=== PATIENT | male | born 1990 | race Caucasian/White ===

== ENCOUNTER 2017-06-29 16:30 | Emergency (ER) | payer OTHER ==
[~2017-06-29] VITALS: Wt 86.2 kg
[~2017-06-29 16:30] MED LIST: AMOXICILLIN500 MG PO; BACTRIM DS 8001 TA1 PO; CEPHALEXIN500 M1 PO; CIPRO500 MG PO; FLEXERIL10 MG PO; HYDROCODONE BIT1 T11 PO; MEDROL DOSEPAK4 MG PO; MOTRIN800 MG PO; NAPROSYN500 MG PO; NO DAILY MEDS; ULTRAM50 MG PO; ZOFRAN4 MG PO
[2017-06-29 16:58] LABS: BASO # 0.1 10*3/uL (0.0-0.1); BASO % 0.8 % (0.0-1.0); EOS # 0.2 10*3/uL (0.0-0.4); EOS % 2.8 % (1.0-4.0); HEMATOCRIT 45.9 % (42.0-52.0); HEMOGLOBIN 15.7 g/dl (14.0-18.0); LYMPH # 2.3 10*3/uL (1.3-4.4); MEAN CELL VOLUME 86.9 fl (80.0-94.0); MEAN CORPUSCULAR HGB 29.7 pg (27.0-31.0); MEAN CORPUSCULAR HGB CONC 34.2 g/dl (33.0-37.0); MEAN PLATELET VOLUME 8.8 fl (9.6-12.3); MONO # 0.7 10*3/uL (0.1-1.0); PLATELET COUNT AUTOMATED 288 10*3/uL (130-400); RED BLOOD COUNT 5.28 10*6/uL (4.50-5.90); WHITE BLOOD COUNT 7.2 10*3/uL (4.8-10.8)
[2017-06-29 17:12] LABS: ACT PARTIAL THROMBO TIME 23.8 SECONDS (20.8-31.5)
[2017-06-29 17:14] LABS: ALBUMIN 3.8 gm/dl (3.1-4.5); ALKALINE PHOSPHATASE 92 U/L (45-117); BUN 8 mg/dl (7-24); CHLORIDE 102 mmol/L (98-107); CREATININE 1.13 mg/dL (0.70-1.30); MAGNESIUM 2.1 mg/dL (1.5-2.1); POTASSIUM 4.1 mmol/L (3.5-5.1); SGOT/AST 32 IU/L (3-35); SGPT/ALT 72 U/L (12-78); SODIUM 137 mmol/L (136-145); TOTAL PROTEIN 8.1 gm/dL (6.4-8.2); TROPONIN I < 0.015 ng/ml (<0.045)
[2017-06-29 18:43] VITALS: BP 136/85
== END 2017-06-29 18:44 | disposition home or self-care (01) ==
LOC: ED 16:30
PROVIDERS: Student in an Organized Health Care Education/Training Program
DX: R07.89 Other chest pain (principal)

== ENCOUNTER 2017-08-07 17:57 | Emergency (ER) | payer OTHER ==
[~2017-08-07] VITALS: Wt 86.2 kg
[2017-08-07 18:07] VITALS: BP 158/89
[2017-08-07] MEDS ORDERED: CIPRO500 MG PO (18:14)
[2017-08-07] MEDS ORDERED: NAPROSYN500 MG PO (18:14)
== END 2017-08-07 18:28 | disposition home or self-care (01) ==
LOC: ED 17:57
DX: S91.332A Puncture wound without foreign body, left foot, initial encounter (principal); R03.0 Elevated blood-pressure reading, without diagnosis of hypertension; F17.200 Nicotine dependence, unspecified, uncomplicated; W22.8XXA Striking against or struck by other objects, initial encounter; Y93.89 Activity, other specified; Y92.89 Other specified places as the place of occurrence of the external cause; Y99.9 Unspecified external cause status

== ENCOUNTER 2018-07-02 13:02 | Emergency (ER) | payer BC ==
[~2018-07-02] VITALS: Ht 175.2 cm; Wt 88.5 kg
--- NOTE | ~2018-07-02 | EKG ---
[place], [place] ELECTROCARDIOGRAM REPORT NAME: FRANDY GARCIA JR UNIT #: [id number] ROOM: DOCTOR: EPIPHANY DRAFT REPORT BIRTHDATE: [birth year] [facility] Test Date: 2018-07-02 Test Time: 13:10:12 Pat Name: FRANDY GARCIA Department: ER Room: 2 Gender: M [employer]: ARCENIO : 1990 Requested By: GUILLERMINA MARIE Order Number: [id number] Reading MD: Taurus Antony MD Measurements Intervals [place] Rate: 94 P: 54 DC: 155 QRS: 57 QRSD: 100 T: 50 QT: 348 QTc: 436 Interpretive Statements Sinus rhythm Probable left atrial enlargement Electronically Signed On 07-03-2018 5:34:47 PDT by Taurus Antony MD CM:EKGRPT:ELECTROCARDIOGRAM REPORT [id number] GUILLERMINA SHEA DRAFT REPORT GUILLERMINA MARIE DO
[2018-07-02 13:37] LABS: BASO # 0.1 10*3/uL (0.0-0.1); BASO % 0.8 % (0.0-1.0); EOS # 0.2 10*3/uL (0.0-0.4); HEMATOCRIT 43.9 % (42.0-52.0); HEMOGLOBIN 15.2 g/dl (14.0-18.0); LYMPH # 2.6 10*3/uL (1.3-4.4); MEAN CELL VOLUME 87.5 fl (80.0-94.0); MEAN CORPUSCULAR HGB 30.3 pg (27.0-31.0); MEAN CORPUSCULAR HGB CONC 34.6 g/dl (33.0-37.0); MEAN PLATELET VOLUME 8.6 fl (9.6-12.3); MONO # 0.8 10*3/uL (0.1-1.0); MONO % 10.9 % (3.0-9.0); NEUT # 3.5 10*3/uL (2.3-7.9); NEUT % 48.5 % (47.0-73.0); PLATELET COUNT AUTOMATED 305 10*3/uL (130-400); RED BLOOD COUNT 5.02 10*6/uL (4.50-5.90); RED CELL DISTRI WIDTH 12.3 % (0-14.5); WHITE BLOOD COUNT 7.2 10*3/uL (4.8-10.8)
[2018-07-02 13:48] LABS: ACT PARTIAL THROMBO TIME 23.6 SECONDS (20.8-31.5)
[2018-07-02 14:00] LABS: ALBUMIN 3.9 gm/dl (3.1-4.5); ALKALINE PHOSPHATASE 76 U/L (45-117); BUN 10 mg/dl (7-24); CHLORIDE 104 mmol/L (98-107); CREATININE 0.91 mg/dL (0.70-1.30); SGOT/AST 52 IU/L (3-35); SGPT/ALT 99 U/L (12-78); SODIUM 139 mmol/L (136-145); TOTAL PROTEIN 7.7 gm/dL (6.4-8.2)
[2018-07-02 14:01] LABS: TROPONIN I < 0.015 ng/ml (<0.045)
[2018-07-02 16:18] VITALS: BP 150/87
[2018-07-02] MEDS ORDERED: Motrin,Rufen800 MG PO (16:57)
== END 2018-07-02 17:12 | disposition home or self-care (01) ==
LOC: ED 13:02
PROVIDERS: Emergency Medicine
DX: M94.0 Chondrocostal junction syndrome [Tietze] (principal); K21.9 Gastro-esophageal reflux disease without esophagitis; Z87.891 Personal history of nicotine dependence

== ENCOUNTER 2019-08-22 16:58 | Emergency (ER) | payer SELFPAY ==
[~2019-08-22] VITALS: Ht 175.2 cm; Wt 104.3 kg
[~2019-08-22 16:58] MED LIST changes: +Motrin,Rufen800 MG PO; +ROBAXIN500 M1 PO
[2019-08-22 17:02] VITALS: BP 163/84
[2019-08-22 17:38] LABS: BASO # 0.1 10*3/uL (0.0-0.1); BASO % 0.8 % (0.0-1.0); EOS # 0.4 10*3/uL (0.0-0.4); EOS % 5.4 % (1.0-4.0); HEMOGLOBIN 15.3 g/dl (14.0-18.0); LYMPH # 2.2 10*3/uL (1.3-4.4); LYMPH % 29.3 % (27.0-41.0); MEAN CELL VOLUME 89.1 fl (80.0-94.0); MEAN CORPUSCULAR HGB 30.3 pg (27.0-31.0); MEAN PLATELET VOLUME 8.5 fl (9.6-12.3); MONO # 0.6 10*3/uL (0.1-1.0); MONO % 7.8 % (3.0-9.0); NEUT # 4.2 10*3/uL (2.3-7.9); NEUT % 56.2 % (47.0-73.0); PLATELET COUNT AUTOMATED 259 10*3/uL (130-400); RED BLOOD COUNT 5.05 10*6/uL (4.50-5.90); WHITE BLOOD COUNT 7.5 10*3/uL (4.8-10.8)
[2019-08-22 17:49] LABS: ACT PARTIAL THROMBO TIME 25.4 SECONDS (20.0-32.1)
[2019-08-22 19:10] LABS: ALBUMIN 3.8 gm/dl (3.1-4.5); ALKALINE PHOSPHATASE 76 U/L (45-117); BUN 10 mg/dl (7-24); CHLORIDE 106 mmol/L (98-107); CREATININE 1.11 mg/dL (0.70-1.30); LIPASE 99 U/L (73-393); POTASSIUM 3.9 mmol/L (3.5-5.1); SGOT/AST 64 IU/L (3-35); SGPT/ALT 131 U/L (12-78); SODIUM 138 mmol/L (136-145); TOTAL PROTEIN 7.8 gm/dL (6.4-8.2)
[2019-08-22 19:11] LABS: TROPONIN I < 0.015 ng/ml (<0.045)
[2019-08-22 19:43] LABS: BILIRUBIN NEGATIVE (NEGATIVE); BLOOD NEGATIVE (NEGATIVE); CLARITY SL CLOUDY (CLEAR); COLOR YELLOW (YELLOW); GLUCOSE NEGATIVE (NEGATIVE); KETONE NEGATIVE (NEGATIVE); LEUKO ESTERASE NEGATIVE (NEGATIVE); NITRITE NEGATIVE (NEGATIVE); SPECIFIC GRAVITY 1.015 (1.005-1.030); UROBILINOGEN 0.2 E.U./dl (0.2-1.0)
[2019-08-22] MEDS ORDERED: AMOXICILLIN500 M2 PO (19:47)
[2019-08-22 20:04] LABS: EPITHELIAL CELLS 0-2
== END 2019-08-22 20:00 | disposition home or self-care (01) ==
LOC: ED 16:58
PROVIDERS: Nurse Practitioner Family
DX: J32.9 Chronic sinusitis, unspecified (principal); I10 Essential (primary) hypertension; Z79.899 Other long term (current) drug therapy

== ENCOUNTER 2020-02-15 15:14 | Emergency (ER) | payer OTHER ==
[~2020-02-15] VITALS: Ht 182.8 cm; Wt 108.9 kg
[~2020-02-15 15:14] MED LIST changes: +AMOXICILLIN500 M2 PO
[2020-02-15 15:20] VITALS: BP 166/89
[2020-02-15] MEDS ORDERED: PREDNISONE20 M1 PO (15:37)
[2020-02-15] MEDS ORDERED: IBU800 MG PO (15:37)
== END 2020-02-15 16:56 | disposition home or self-care (01) ==
LOC: ED 15:14
DX: L55.1 Sunburn of second degree (principal); L55.0 Sunburn of first degree; R19.7 Diarrhea, unspecified; I10 Essential (primary) hypertension

== ENCOUNTER 2020-04-03 09:57 | Emergency (ER) | payer OTHER ==
[~2020-04-03] VITALS: Ht 175.2 cm; Wt 101.6 kg
[~2020-04-03 09:57] MED LIST changes: +IBU800 MG PO; +PREDNISONE20 M1 PO
[2020-04-03 10:47] LABS: BASO # 0.1 10*3/uL (0.0-0.1); BASO % 0.4 % (0.0-1.0); EOS # 0.2 10*3/uL (0.0-0.4); EOS % 0.9 % (1.0-4.0); HEMATOCRIT 42.4 % (42.0-52.0); LYMPH # 1.7 10*3/uL (1.3-4.4); LYMPH % 10.9 % (27.0-41.0); MEAN CELL VOLUME 90.2 fl (80.0-94.0); MEAN CORPUSCULAR HGB 29.8 pg (27.0-31.0); MEAN PLATELET VOLUME 8.6 fl (9.6-12.3); MONO # 1.5 10*3/uL (0.1-1.0); MONO % 9.5 % (3.0-9.0); NEUT # 12.3 10*3/uL (2.3-7.9); NEUT % 77.6 % (47.0-73.0); PLATELET COUNT AUTOMATED 285 10*3/uL (130-400); WHITE BLOOD COUNT 15.9 10*3/uL (4.8-10.8)
[2020-04-03 10:59] VITALS: BP 140/90
[2020-04-03 11:04] LABS: ALBUMIN 3.6 gm/dl (3.1-4.5); ALKALINE PHOSPHATASE 77 U/L (45-117); BUN 7 mg/dl (7-24); CHLORIDE 108 mmol/L (98-107); CREATININE 0.94 mg/dL (0.70-1.30); POTASSIUM 4.2 mmol/L (3.5-5.1); SGOT/AST 36 IU/L (3-35); SGPT/ALT 69 U/L (12-78); SODIUM 139 mmol/L (136-145); TOTAL PROTEIN 8.3 gm/dL (6.4-8.2)
[2020-04-03 11:05] LABS: TROPONIN I < 0.015 ng/ml (<0.045)
[2020-04-03] MEDS ORDERED: AMOXICILLIN,AM250 MG PO (13:18)
[2020-04-03] MEDS ORDERED: MEDROL DOSEPAK4 MG PO (13:18)
== END 2020-04-03 13:36 | disposition home or self-care (01) ==
LOC: ED 09:57
PROVIDERS: Nurse Practitioner Family
DX: J02.0 Streptococcal pharyngitis (principal); Z79.899 Other long term (current) drug therapy

== ENCOUNTER 2021-03-12 15:18 | Emergency (ER) | payer OTHER ==
[~2021-03-12] VITALS: Ht 182.8 cm; Wt 113.4 kg
[~2021-03-12 15:18] MED LIST changes: +AMOXICILLIN,AM250 MG PO
[2021-03-12 15:32] VITALS: BP 149/83
[2021-03-12] MEDS ORDERED: Motrin,Rufen800 MG PO (17:01)
== END 2021-03-12 17:05 | disposition home or self-care (01) ==
LOC: ED 15:18
DX: S39.012A Strain of muscle, fascia and tendon of lower back, initial encounter (principal); Z79.899 Other long term (current) drug therapy; X50.1XXA Overexertion from prolonged static or awkward postures, initial encounter; Y93.89 Activity, other specified; Y92.69 Other specified industrial and construction area as the place of occurrence of the external cause; Y99.9 Unspecified external cause status

== ENCOUNTER → 2021-05-09 | Outpatient (CLI) | payer OTHER ==
[2021-05-10 06:07] LABS: HEP B CORE AB, IGM Negative (Negative); HEPATITIS B SURFACE AG Negative (Negative); HEPATITIS C VIRUS ANTIBODY <0.1 s/co (0.0-0.9)
== END | disposition home or self-care (01) ==
LOC: US 10:00 → LAB 11:23
PROVIDERS: ATTEND Internal Medicine
DX: K76.0 Fatty (change of) liver, not elsewhere classified (principal); R16.0 Hepatomegaly, not elsewhere classified; R74.8 Abnormal levels of other serum enzymes

== ENCOUNTER 2022-10-15 10:13 | Emergency (ER) | payer OTHER ==
[~2022-10-15] VITALS: Wt 99.8 kg
[2022-10-15 10:22] VITALS: BP 155/92
[2022-10-15] MEDS ORDERED: Percocet 325 MG1 TAB PO (10:34)
[2022-10-15] MEDS ORDERED: ANTIBIOTIC28.4 GM T (10:34)
== END 2022-10-15 10:57 | disposition home or self-care (01) ==
LOC: ED 10:13
DX: T25.231A Burn of second degree of right toe(s) (nail), initial encounter (principal); T31.0 Burns involving less than 10% of body surface; Z98.890 Other specified postprocedural states; X19.XXXA Contact with other heat and hot substances, initial encounter; Y93.89 Activity, other specified; Y92.89 Other specified places as the place of occurrence of the external cause; Y99.8 Other external cause status

== ENCOUNTER → 2022-10-16 | Outpatient (CLI) | payer OTHER ==
[~2022-10-16] MED LIST changes: +ANTIBIOTIC28.4 GM T; +Percocet 325 MG1 TAB PO
== END | disposition home or self-care (01) ==
LOC: WOUNDCARE 13:20
PROVIDERS: ATTEND Nurse Practitioner Family
DX: T25.031A Burn of unspecified degree of right toe(s) (nail), initial encounter (principal); T25.021A Burn of unspecified degree of right foot, initial encounter; T31.0 Burns involving less than 10% of body surface; I10 Essential (primary) hypertension; X08.8XXA Exposure to other specified smoke, fire and flames, initial encounter; Y93.89 Activity, other specified; Y92.89 Other specified places as the place of occurrence of the external cause; Y99.8 Other external cause status

== ENCOUNTER → 2022-10-20 | Outpatient (CLI) | payer OTHER | END | disposition home or self-care (01) | LOC: WOUNDCARE 02:13 | PROVIDERS: ATTEND Nurse Practitioner Family | DX: T25.331D Burn of third degree of right toe(s) (nail), subsequent encounter (principal); T25.021D Burn of unspecified degree of right foot, subsequent encounter; I10 Essential (primary) hypertension; X08.8XXD Exposure to other specified smoke, fire and flames, subsequent encounter ==

== ENCOUNTER → 2022-10-27 | Outpatient (CLI) | payer OTHER | LOC: WOUNDCARE 10-26 14:41 | PROVIDERS: ATTEND Nurse Practitioner Family | DX: T25.331D Burn of third degree of right toe(s) (nail), subsequent encounter (principal); I10 Essential (primary) hypertension; X08.8XXD Exposure to other specified smoke, fire and flames, subsequent encounter ==

== ENCOUNTER → 2022-11-02 | Outpatient (CLI) | payer OTHER | END | disposition home or self-care (01) | LOC: WOUNDCARE 01:23 | PROVIDERS: ATTEND Nurse Practitioner Family | DX: T25.331D Burn of third degree of right toe(s) (nail), subsequent encounter (principal); I10 Essential (primary) hypertension; X08.8XXD Exposure to other specified smoke, fire and flames, subsequent encounter ==

== ENCOUNTER → 2022-11-10 | Outpatient (CLI) | payer OTHER | END | disposition home or self-care (01) | LOC: WOUNDCARE 11-09 01:00 | PROVIDERS: ATTEND Nurse Practitioner Family | DX: T25.331D Burn of third degree of right toe(s) (nail), subsequent encounter (principal); I10 Essential (primary) hypertension; T31.0 Burns involving less than 10% of body surface; X08.8XXD Exposure to other specified smoke, fire and flames, subsequent encounter ==

== ENCOUNTER → 2023-07-23 | Outpatient (CLI) | payer OTHER | END | disposition home or self-care (01) | LOC: RAD 16:25 | PROVIDERS: ATTEND Physician Assistant | DX: M54.9 Dorsalgia, unspecified (principal) ==